=== PATIENT | female | born 1985 | race Caucasian/White ===

== ENCOUNTER 2016-11-06 07:13 | Emergency (ER) | payer BC, OTHER ==
[2016-11-06 07:23] VITALS: BP 110/63
--- NOTE | 2016-11-06 08:14 | UC ---
Parish Johnson Rebecca, scribed for Caryl Geronimo MD on 11/06/16 at 0746 . Skin Complaint HPI - HPI Summary HPI Summary: Pt is a 31 y/o F who presents to [facility] c/o LLE pain and erythema. Reports pain began 4 days ago and is characterized as tightness and tenderness, similar to a muscle strain. Pain is in the byrne and thigh and is currently mild, ranked 3/ 10. Erythema began 2 days ago as a "patchy line of redness" and has improved since onset. Sx aggravated by palpation and ambulation, alleviated by ASA (last took 325 mg this morning). Denies warmth to touch, acute calf tenderness, pruritis, palpitations, SOB, MICHELLE, dizziness, lightheadedness, abd and inguinal pain. Reports she is typically extremely active (running and yoga) but the past 2.5 weeks she has not been active and was "in the car all last week." PMHx DVT ( 2006 s/p ankle fx). At that time, was taking oral contraceptives. Notes chronic L calf tightness secondary to DVT but current sx are not similar to chronic sx. Had acupuncture treatment several days ago. Small ecchymosis noted on the inner thigh at that time. Photograph taken yesterday shows erythema over the course of the greater saphenous. Flying to [place] this week and is concerned about risk. - History of Current Complaint Chief Complaint: UCSkin Time Seen by Provider: 11/06/16 07:40 Stated Complaint: LEG PAIN Hx Obtained From: Patient Hx Last Menstrual Period: iud Onset/Duration: Lasting Days - Pain - 4 days Erythema - 2 days, Still Present Current Severity: Mild Pain Intensity: 3 Pain Scale Used: 0-10 Numeric Location: Other - LLE Character: Pain - mild, Redness Aggravating: Other - Ambulation and palpation Alleviating: OTC Meds - ASA Associated Signs & Symptoms: Positive: Negative - Allergy/Home Medications Allergies/Adverse Reactions: Allergies Allergy/AdvReac Type Severity Reaction Status Date / Time Cefprozil [From Cefzil] Allergy Hives Verified 11/06/16 07:20 Home Medications: Home Medications NK [No Home Medications Reported] 11/06/16 [History Confirmed 11/06/16] Review of Systems Constitutional: Negative Skin: Other - "Patchy line of redness" on the LLE Eyes: Negative ENT: Negative Respiratory: Negative Cardiovascular: Negative Gastrointestinal: Negative Genitourinary: Negative Motor: Negative Neurovascular: Negative Musculoskeletal: Other: - Mild pain (tightness/tenderness) in the L byrne and L thigh Neurological: Negative Psychological: Negative All Other Systems Reviewed And Are Negative: Yes - Comments Additional Review of Systems Comments: NEGATIVE: Warmth to touch, acute calf tenderness, pruritis, palpitations, SOB, MICHELLE, dizziness, lightheadedness, abd and inguinal pain PMH/Surg Hx/FS Hx/Imm Hx Previously Healthy: No Cardiovascular History: Deep Vein Thrombosis - 2006 s/p ankle fx - Surgical History Surgical History: None - Family History Known Family History: Positive: Hypertension - father - Social History Occupation: Employed Full-time - Massage therapist Alcohol Use: Occasionally Substance Use Type: None Smoking Status (MU): Never Smoked Tobacco Physical Exam Triage Information Reviewed: Yes Appearance: Well-Appearing, Thin Vital Signs: Initial Vital Signs Temp 98 F 11/06/16 07:20 Pulse 65 11/06/16 07:20 Resp 16 11/06/16 07:20 BP 110/63 11/06/16 07:20 Pulse Ox 100 11/06/16 07:20 Vital Signs Reviewed: Yes Eye Exam: Normal ENT: Positive: Pharynx normal Respiratory: Positive: Lungs clear, Normal breath sounds Cardiovascular: Positive: RRR, No Murmur Abdomen Description: Positive: Nontender, No Organomegaly, Other: - no tenderness or adenopathy in the inguinal area. Musculoskeletal Exam: Normal Musculoskeletal: Positive: No Edema, Other: - Leg circumference taken at the top of the patella: 35.5 cm bilaterally. 10cm below the tibial tuberosity: 34 cm bilaterally. Psychological Exam: Normal Skin: Positive: Other - no warmth or erythema. Small ecchymosis about 2 cm medial left thigh, and one small 1 cm ecchymosis in the medial left calf. Erythema has resolved. Course/Dx - Course Course Of Treatment: continue observation of suspected superficial thrombophlebitis. Discussed transfer to ER for doppler evaluation; reluctant because of cost. Advised to present to the ER or to her audience development manager for follow up if pain persists or worsens, or if there is increased swelling. Aspirin 325mg once daily. - Diagnoses Provider Diagnoses: superficial thrombophlebitis left leg. Discharge - Discharge Plan Condition: Stable Disposition: HOME Patient Education Materials: Superficial Thrombophlebitis (ED) Additional Instructions: As discussed, thie findings suggest a superficial thrombophlebitis. Should you have increasing pain, please go to the emergency room for assessment and a Doppler evaluation of the leg. Continue use of aspirin 325mg once daily for pain and for anti-platelet effect. I suggest follow up with your primary care on Tuesday, when a n evaluation could be arranged. The documentation as recorded by the Parish kinsey Rebecca accurately reflects the service I personally performed and the decisions made by me, Caryl Geronimo MD.
== END 2016-11-06 08:15 | disposition home or self-care (01) ==
LOC: UCEAST 07:13
DX: I80.02 Phlebitis and thrombophlebitis of superficial vessels of left lower extremity (principal); Z86.718 Personal history of other venous thrombosis and embolism
CPT/HCPCS: 99201; G0463

== ENCOUNTER 2016-11-07 13:04 | Emergency (ER) | payer BC ==
[2016-11-07 14:00] LABS: Urine Bilirubin Negative (Negative); Urine Glucose Negative (Negative); Urine Nitrite Negative (Negative)
[2016-11-07 14:01] LABS: Hematocrit 41 % (35-47); Hemoglobin 14.1 g/dl (12.0-16.0); Mean Corpuscular HGB Conc 34 g/dl (31-36); Mean Corpuscular Hemoglobin 31 pg (27-31); Mean Corpuscular Volume 90 fL (80-97); Mean Platelet Volume 9 um3 (7.4-10.4); Red Blood Count 4.55 10^6/ul (4.0-5.4); Red Cell Distribution Width 13 % (10.5-15); White Blood Count 6.9 10^3/ul (3.5-10.8)
[2016-11-07 14:10] LABS: ALT 15 U/L (7-52); AST 17 U/L (13-39); Albumin 4.9 g/dL (3.2-5.2); Alkaline Phosphatase 39 U/L (34-104); Anion Gap 7 mmol/L (2-11); BUN/Creatinine Ratio 11.9 (8-20); Blood Urea Nitrogen 10 mg/dL (6-24); C Reactive Protein < 1.00 mg/L (< 5.00); CO2 Carbon Dioxide 25 mmol/L (22-32); Calcium 9.4 mg/dL (8.6-10.3); Chloride 106 mmol/L (101-111); EGFR African American 103.1 (>60); EGFR Non-African American 80.2 (>60); Globulin 2.8 g/dL (2-4); Glucose 86 mg/dL (70-100); Lipase 29 U/L (11.0-82.0); Potassium 3.5 mmol/L (3.5-5.0); Sodium 138 mmol/L (133-145); Total Protein 7.7 g/dL (6.4-8.9)
--- NOTE | 2016-11-07 15:08 | RAD ---
Indication: RIGHT pelvic pain. Comparison: No relevant prior exams available on the [facility] for comparison. Technique: Transvaginal pelvic ultrasound. Report: 7.2 x 3.4 x 5.9 cm anteverted uterus with 3 mm endometrium. IUD in place in the endometrial cavity. No uterine lesions evident. 3.7 x 2.4 x 2.3 cm LEFT ovary with documented vascular flow is remarkable for multiple small follicles. 10.0 x 7.5 x 7.8 cm complex RIGHT adnexal region mass with an echogenic shadowing elements consistent with calcification as well as complex fluid. Only equivocal marginal vascularity. The RIGHT ovary is not identified separate from this structure. Trace anechoic simple appearing free fluid in the RIGHT adnexal region. IMPRESSION: 1. IUD appears in appropriate position. 2. Unremarkable LEFT ovary. 3. While no definitive RIGHT ovarian tissue is visualized the RIGHT adnexal region mass lesion is highly suspicious for a dermoid cyst arising from the RIGHT ovary with the ovarian tissue likely completely marginated due to the size of the lesion. Correlate with clinical assessment as torsion or partial torsion of this large mass is not excluded on the basis of this exam. 4. Trace free pelvic fluid. Results discussed with Dr. Chiu 11/07/2016 3:04 PM EDT
[2016-11-07 16:05] VITALS: BP 107/67
--- NOTE | 2016-11-07 16:27 | RAD ---
INDICATION: LEFT lower extremity pain. History of DVT. COMPARISON: January 31, 2007 TECHNIQUE: Hess scale, color Doppler, and spectral analysis of the deep veins of the LEFT lower extremity. Vessel compression, phasicity, and augmentation assessed. REPORT: The LEFT common femoral, great saphenous, profunda femoral, femoral, popliteal, peroneal, and posterior tibial veins are patent. Patency of the RIGHT common femoral vein documented. IMPRESSION: No evidence for LEFT lower extremity deep venous thrombosis.
[2016-11-07] MEDS ORDERED: traMADol TAB* 50 MG PO ONE (16:44)
--- NOTE | 2016-11-09 07:55 | ED ---
Cecile Johnson SooYoung, scribed for Otf Chiu MD on 11/07/16 at 1325 . Abdominal Pain/Female - HPI Summary HPI Summary: A 31 y/o F presents to ED with c/o R-sided abd pain onset few days ago. She states it's not worsening. Pert PMHx: ovarian cysts, and she states the pain feels similar. Pain described as cramping and is non-radiating. Denies dysuria, hematuria, fever, chills, nausea, diaphoresis. Taking Aspiring to mild relief. Pt has an IUD. Non-smoker. Occasional ETOH. PMHx: UTI, neg kidney stones. Pt is scheduled for air travel tomorrow for her honeymoon. PCP is Family Medicine. 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 - History of Current Complaint Chief Complaint: EDAbdPain Stated Complaint: RT ABD PAIN Time Seen by Provider: 11/07/16 13:12 Hx Obtained From: Patient Hx Last Menstrual Period: iud Onset/Duration: Gradual Onset, Lasting Days, Still Present Timing: Constant Severity Initially: Moderate Severity Currently: Moderate Pain Intensity: 4 Pain Scale Used: 0-10 Numeric Location: Diffuse - R-side Radiates: No Character: Cramping Aggravating Factor(s): Nothing Alleviating Factor(s): OTC Analgesics - mildly Associated Signs and Symptoms: Positive: Negative. Negative: Diaphoresis, Fever , Urinary Symptoms, Nausea, Other: - neg: chills Allergies/Adverse Reactions: Allergies Allergy/AdvReac Type Severity Reaction Status Date / Time Cefprozil [From Cefzil] Allergy Hives Verified 11/06/16 07:20 PMH/Surg Hx/FS Hx/Imm Hx Previously Healthy: No Cardiovascular History: Reports: Hx Deep Vein Thrombosis Respiratory History: Denies: Hx Chronic Obstructive Pulmonary Disease (COPD) History: Reports: Other Problems/Disorders - ovarian cysts; UTI Denies: Hx Kidney Stones Opthamlomology History: Denies: Hx Legally Blind Infectious Disease History: No Infectious Disease History: Denies: Hx Clostridium Difficile, Hx Hepatitis, Hx Human Immunodeficiency Virus (HIV), Hx of Known/Suspected MRSA, Hx Shingles, Hx Tuberculosis, Hx Known/ Suspected VRE, Hx Known/Suspected VRSA, History Other Infectious Disease, Traveled Outside the [place] in Last 30 Days - Family History Known Family History: Positive: Hypertension - father, Other - mom: appy - Social History Occupation: Employed Full-time Lives: With Family - Alcohol Use: Occasionally Hx Substance Use: No Substance Use Type: Reports: None Hx Tobacco Use: No Smoking Status (MU): Never Smoked Tobacco Review of Systems Negative: Fever, Chills Negative: Erythema Negative: Sore Throat Negative: Chest Pain Negative: Shortness Of Breath, Cough Positive: Abdominal Pain. Negative: Vomiting, Nausea Negative: dysuria, hematuria Negative: Myalgia, Edema Negative: Rash Neurological: Other - neg: dizziness All Other Systems Reviewed And Are Negative: Yes Physical Exam - Summary Physical Exam Summary: Constitutional: Well-developed, Well-nourished, Alert. (-) Distressed Skin: Warm, Dry HENT: Normocephalic; Atraumatic Eyes: Conjunctiva normal Neck: Musculoskeletal ROM normal neck. (-) JVD, (-) Stridor, (-) Tracheal deviation Cardio: Rhythm regular, rate normal, Heart sounds normal; Intact distal pulses; The pedal pulses are 2+ and symmetric. Radial pulses are 2+ and symmetric. (-) Murmur Pulmonary/Chest wall: Effort normal. (-) Respiratory distress, (-) Wheezes, (-) Rales Abd: Soft, RLQ tenderness, (-) Distension, (-) Guarding, (-) Rebound, (-) Adnexal tenderness. Musculoskeletal: (-) Edema Lymph: (-) Cervical adenopathy Neuro: Alert, Oriented x3 Psych: Mood and affect Normal Triage Information Reviewed: Yes Vital Signs On Initial Exam: Initial Vitals Temp Pulse Resp BP Pulse Ox 98.2 F 71 16 126/75 100 11/07/16 13:07 11/07/16 13:07 11/07/16 13:07 11/07/16 13:07 11/07/16 13:07 Vital Signs Reviewed: Yes Diagnostics - Vital Signs Vital Signs Temp Pulse Resp BP Pulse Ox 11/07/16 13:07 98.2 F 71 16 126/75 100 - Laboratory Result Diagrams: 11/07/16 13:32 11/07/16 13:32 Lab Statement: Any lab studies that have been ordered have been reviewed, and results considered in the medical decision making process. - Ultrasound No standard instances Ultrasound Interpretation: Positive (See Comments) - TRANSVAG U/S IMPRESSION: 1. IUD appears in appropriate position. 2. Unremarkable LEFT ovary. 3. While no definitive RIGHT ovarian tissue is visualized the RIGHT adnexal region mass lesion is highly suspicious for a dermoid cyst arising from the RIGHT ovary with the ovarian tissue likely completely marginated due to the size of the lesion. Correlate with clinical assessment as torsion or partial torsion of this large mass is not excluded on the basis of this exam. 4. Trace free pelvic fluid. Results discussed with Dr. Chiu 11/07/2016 3:04 PM EDT Ultrasound Interpretation Completed By: Radiologist - Additional Comments Diagnostic Additional Comments: Venous U/S as read by radiologist: IMPRESSION: No LLE DVT. Re-Evaluation - Re-Evaluation 1 Re-Evaluation Time: 15:45 Change: Unchanged Comment: Discussing results and consult with pt and . Pt recently ate a [employer] bar while in ED, even though NPO was ordered. Brief PE finds mild abd tenderness and no peritoneal tendenress. Pt states having had tightness in L thigh for past few days, at rest without movement. PMHx of DVT. Per Dr. Bond , OB-DIGITAL CONTENT MARKETING MANAGER, pt should not go on her honeymoon, should have the ovary removed this week. Pt at high-risk for torsion. Pt is to f/u with office tomorrow AM. Pt voiced understanding. 2 Re-Evaluation Time: 16:46 Change: Unchanged Comment: Discussing U/S results with pt. Will dispo home per Dr. Bond's instructions. Abdominal Pain Fem Course/Dx - Course Course Of Treatment: A 31 y/o F presents to ED with c/o R-sided abd pain onset few days ago. She states it's not worsening. Pert PMHx: ovarian cysts, and she states the pain feels similar. Pain described as cramping and is non-radiating. Denies dysuria, hematuria, fever, chills, nausea, diaphoresis. Pt has an IUD. PMHx: UTI, neg kidney stones. Blood results are without significant abnormalities. UA is negative for UTI. Transvag U/S shows "1. IUD appears in appropriate position. 2. Unremarkable LEFT ovary. 3. While no definitive RIGHT ovarian tissue is visualized the RIGHT adnexal region mass lesion is highly suspicious for a dermoid cyst arising from the RIGHT ovary with the ovarian tissue likely completely marginated due to the size of the lesion. Correlate with clinical assessment as torsion or partial torsion of this large mass is not excluded on the basis of this exam. 4. Trace free pelvic fluid." Venous Doppler U/S shows no evidence of LLE DVT. Pt will be D/C to f/u OBGYN tomorrow. - Diagnoses Provider Diagnoses: Ovarian mass, right, myalgia of L leg - Provider Notifications Discussed Care Of Patient With: Ariadna Bond - LYNDA Time Discussed With Above Provider: 15:31 Instructed by Provider To: Have Pt Call For Appt. - Tomorrow AM. Since pt is not in acute abd distress, emergency surgery not justified. Ovary should be removed this week. Pt is at high risk for torsion. Discharge - Discharge Plan Condition: Stable Disposition: HOME Patient Education Materials: Ovarian Cyst (ED), Musculoskeletal Pain (ED) Referrals: Portia Stubbs MD [Primary Care Provider] - Ariadna Bond MD [Medical Doctor] - 1 Day (Call Dr. Bond's office, OB-DIGITAL CONTENT MARKETING MANAGER , tomorrow , 11/08/16. Surgery to remove the ovary should occur this week. ) Additional Instructions: Call Dr. Bond's office, OB-DIGITAL CONTENT MARKETING MANAGER, tomorr, 11/08/16. Surgery to remove the ovary should occur this week. Return to Emergency Room immediately if you experience acute, worsening abdominal pain. The documentation as recorded by the Cecile kinsey SooYoung accurately reflects the service I personally performed and the decisions made by me, Otf Chiu MD.
== END 2016-11-07 17:24 | disposition home or self-care (01) ==
LOC: ED 13:04
DX: N83.9 Noninflammatory disorder of ovary, fallopian tube and broad ligament, unspecified (principal); M79.1 Myalgia; Z32.02 Encounter for pregnancy test, result negative; Z97.5 Presence of (intrauterine) contraceptive device; Z86.718 Personal history of other venous thrombosis and embolism; Z88.1 Allergy status to other antibiotic agents; Z87.440 Personal history of urinary (tract) infections
CPT/HCPCS: 36415; 76830; 80053; 81003; 83605; 83690; 84702; 85025; 86140; 99282; A9270-GY

== ENCOUNTER 2017-01-14 08:03 | Observation (INO) | payer BC ==
[~2017-01-14 08:03] MED LIST: Buffered Lidocaine 0.9% SYRIN* 5 ML/SYR SYRINGE INTRADERM ONE
[2017-01-14] MEDS ORDERED: Clindamycin 900 MG IVPREMIX(* 900 MG/50 ML SDV IV ONE (08:39)
[2017-01-14] MEDS ORDERED: Buffered Lidocaine 0.9% SYRIN* 5 ML/SYR SYRINGE ONE (08:40)
[2017-01-14] MEDS ORDERED: Bupivacaine 0.5% SDV PF* 30 ML VIAL ONE (08:50)
[2017-01-14] MEDS ORDERED: Bupivacaine 0.25% SDV* 30 ML ONE (08:50)
[2017-01-14] MEDS ORDERED: fentaNYL* 50 MCG/ML 2 ML VIAL (100 MCG VIAL) ONE (09:03)
[2017-01-14] MEDS ORDERED: Midazolam* 1 MG/ML 2 ML VIAL (2 MG) ONE (09:04)
[2017-01-14] MEDS ORDERED: Morphine PF AMP (0.5MG/ML)* 5 MG/10 ML AMP ONE (09:40)
[2017-01-14] MEDS ORDERED: Scopolamine 1.5 mg* PATCH ONE (10:17)
[2017-01-14] MEDS ORDERED: Famotidine IV* 10 MG/ML 2 ML (20 mg) ONE (10:17)
[2017-01-14] MEDS ORDERED: Dexamethasone IV* 4 MG/ML 1 ML (4 MG) ONE (10:17)
[2017-01-14] MEDS ORDERED: Ondansetron INJ* 2 MG/ML VIAL ONE (10:17)
[2017-01-14] MEDS ORDERED: Ketorolac INJ* 30 MG/ML 1 ML VIAL ONE (10:17)
[2017-01-14] MEDS ORDERED: fentaNYL* 50 MCG/ML 2 ML VIAL (100 MCG VIAL) IV PRN (10:37)
[2017-01-14] MEDS ORDERED: Ondansetron INJ* 2 MG/ML VIAL IV PRN (10:38)
[2017-01-14] MEDS ORDERED: Nalbuphine* 20 MG/ML 1 ML VIAL IV PRN ×2 (10:38)
[2017-01-14] MEDS ORDERED: diPHENhydraMINE IV* 50 MG/ML 1 ml VIAL (BENADRYL) IV PRN (10:38)
[2017-01-14] MEDS ORDERED: Scopolomine PATCH Remove* 1 NOTE MISC PATCH OFF PRN (10:38)
[2017-01-14] MEDS ORDERED: Naloxone* 0.4 MG/ML 1 ML VIAL IV PRN (10:38)
[2017-01-14] MEDS ORDERED: HYDROcodone/ACETAMIN 5-325 MG* 1 TAB PO PRN ×2 (10:38)
[2017-01-14] MEDS ORDERED: PROCHLORPERAZINE INJ 5 MG/ML 2 ML VIAL IV PRN (10:38)
[2017-01-14] MEDS ORDERED: Acetaminophen TAB* 325 MG PO SCH (11:00)
[2017-01-14] MEDS ORDERED: Nalbuphine* 20 MG/ML 1 ML VIAL ONE (12:08)
[2017-01-14] MEDS ORDERED: PROCHLORPERAZINE INJ 5 MG/ML 2 ML VIAL ONE (12:39)
[2017-01-14] MEDS: Ketorolac INJ* 30 MG/ML 1 ML VIAL IV SCH ×3 (13:01→23:26)
[2017-01-14] MEDS: Acetaminophen TAB* 325 MG PO SCH ×3 (14:19→22:12)
[2017-01-14] MEDS ORDERED: Enoxaparin(*) 40 MG/0.4 ML SYR SUBCUT SCH (20:00)
[2017-01-14 22:02] LABS: BUN/Creatinine Ratio 9.2 (8-20); Calcium 8.7 mg/dL (8.6-10.3); Magnesium 1.6 mg/dL (1.9-2.7); Potassium 4.3 mmol/L (3.5-5.0)
--- NOTE | 2017-01-14 23:33 | CONS ---
CC: Portia Stubbs MD; Dr. Bond * CONSULTATION REPORT: DATE OF CONSULT: 01/14/17 ATTENDING PHYSICIAN: Tram Barrera DO (report dictated by Joaquín Paris NP). REQUESTING PHYSICIAN IN CONSULT: Dr. Bond. PRIMARY CARE PROVIDER: Portia Stubbs MD REASON FOR MEDICAL CONSULTATION: Response to CAT call for bradycardia, heart rate in 29 by palpation of the radial pulse. HISTORY OF PRESENT ILLNESS: Ms. Mays is a 31-year-old female who presented to the Dr. Bond's care for an evaluation of a large right dermoid of 10 x 7.5 x 7.8 cm and desired for ovarian cystectomy and preservation of the right ovary. The patient had been complaining of discomfort and pressure sensation from the enlarged right dermoid. She sought care with Dr. Bond. She went to the OR today for this ovarian cystectomy. She underwent spinal Duramorph anesthetic. Whilst in the OR, it was noted that heart rates were running low into the 50s. The patient was found to be bradycardic at 29 around 2100 tonight. CAT call was called. She was evaluated. She is asymptomatic. She is not having any chest pain. She does not feel lightheaded. She does state that she runs daily. When I auscultated her heart rate, she did sound she was right about 50. Blood pressure was stable in the 110/70 range. She had no symptoms. She states that she does a lot of running and yoga. The patient does have a history of DVT after an ankle fracture in 2006 and she was also taking oral contraceptives. The patient again denies feeling lightheaded and states that she has been up walking around. PAST MEDICAL HISTORY: Significant for: 1. DVT in the past. 2. Ankle fracture. PAST SURGICAL HISTORY: She has had wisdom teeth extractions. HOME MEDICATIONS: Include: 1. Mushroom tincture 1 tablet daily. 2. Lactobacillus 1 tablet daily. 3. Homeopathic products 1 p.o. daily. 4. Fish oil 1 capsule daily. ALLERGIES TO MEDICATIONS: Include CEFPROZIL. FAMILY HISTORY: She states both her mom and dad to her knowledge are healthy. They have no significant medical problems. SOCIAL HISTORY: She does not smoke. She does not drink. She is . She does not have any children. She is again very active. She was running on a daily basis up to a few weeks ago. She does not know her resting heart rate though. Surrogate decision maker is her . REVIEW OF SYSTEMS: There is no documented fever. There is no significant weight change. No double vision. No ear discharge. Denied having any rhinorrhea. There is no sore throat. No thyroid enlargement. She denied having any chest pain or shortness of breath. No abdominal pain. No nausea. No vomiting. No dysuria. She denied any frequency. No loss of consciousness, no pruritus and no skin ulcerations. Review of 14 systems completed, all others negative. PHYSICAL EXAM: Vital Signs: Reveals blood pressure 102/37; pulse, again there was documentation of 38 and now it is 54; respirations 16; O2 sat 100%. General : At this time, Ms. Mays is a 31-year-old female patient. She appears to be well nourished, well developed. She does not appear to be in any acute distress. She is awake and she is alert. HEENT: Head: Atraumatic, normocephalic. Eyes: EOMs are intact. Sclerae anicteric. Not pale. Neck: Supple. Throat: Oral mucosa appears to be moist. No oropharyngeal erythema. Heart: Sounds S1, S2. Regular rate and rhythm. No murmurs, rubs, or gallops. Lungs: Clear to auscultation. No wheezes, rales, or rhonchi. Abdomen: Soft , flat, nontender. Bowel sounds present. Extremities: Pulses 2+ throughout. No peripheral edema. No calf tenderness. 5/5 strength. Neurologically, she is awake, alert, oriented x3. Tongue midline, automation machine operator were equal. No gross focal deficits. Skin: Grossly intact. DIAGNOSTIC STUDIES/LAB DATA: WBC from 01/03/17 was 5.4, RBC 4.58, hemoglobin 13.9, hematocrit 41, platelet count 291,000. Chemistries on 11/07/16, sodium 138 , potassium 3.5, chloride 106, bicarb 25, BUN 10, creatinine 0.84. Glucose 86. Lactate 1.4. Calcium 9.4. Total bili 0.3. AST 17, ALT 15, alk phos 39, CRP less than 1. Urine negative. She did have a EKG obtained today, no other previous for comparison, but it does show a sinus bradycardia. No AV blocks. No T-wave inversions. No ST elevations. No previous for comparison. Old medical records were reviewed. ASSESSMENT AND PLAN: Ms. Mays is a 31-year-old female patient coming into Dr. Bond's service today for an elective right ovarian cystectomy. The patient postoperatively was noted to be bradycardic. The patient was again noted to be pretty asymptomatic. A CAT call was called and we were asked to evaluate in consult. Recommendations at this point are: 1. Bradycardia. This appears to be symptomatic bradycardia. I am going to place her on telemetry. A question of maybe she was in bigeminy. I am going to get her electrolytes, BMP and also magnesium. We will place her on the telemetry on surgical stay. We will monitor. Should she become symptomatic, we will get a more emergent cardiology consult, but we should consider cardiology consult in the morning. I did discuss this with Dr. Christine. She was in agreement. It could just be med related again. The Duramorph may be causing bradycardia and her resting heart rate is probably in the 50s as she is very active and a runner, so I think we just need to monitor. She is completely asymptomatic. We will follow closely. 2. DVT prophylaxis. Again, high risk and she is already on Lovenox subcu by Dr. Bond's team, though I will continue with this. I do not see any signs of deep venous thromboses currently. We will monitor. 3. Ovarian cystectomy, status post postop day #0. I will defer the management to Dr. Bond and team. 4. Code status: Full code. 5. Fluids, electrolytes, and nutrition. I would recommend a regular diet. TIME SPENT: On the consult 40 minutes, greater than half the time spent face-to - face with the patient obtaining my history and physical; other half of time spent going over the plan of care with the patient and implementing the plan of care. I did discuss this plan of care with my attending, Dr. Barrera, she is in agreement. JOAQUÍN PARIS, TRICIA [id number]/[facility] #: [id number]
[2017-01-15] MEDS ORDERED: NS 0.9% 1000 ML* 1,000 ML IV SCH (00:45)
[2017-01-15] MEDS ORDERED: Magnesium Sulfate 2 GM IV* 2 GM/50 ML BAG IVPB ONE (01:00)
[2017-01-15] MEDS ORDERED: oxyCODONE/Acetamin 5/325 MG* TAB PO PRN ×2 (02:00)
[2017-01-15] MEDS: Acetaminophen TAB* 325 MG PO SCH ×2 (02:13→05:55)
--- NOTE | 2017-01-15 05:06 | OP ---
OPERATIVE REPORT: DATE OF OPERATION: 01/14/17 DATE OF : 89 SURGEON: Ariadna Bond MD. FORM SETTER: Adrian Elizondo MD. ANESTHESIOLOGIST: Dr. Dumont. ANESTHESIA: Spinal anesthesia with local. PRE-OP DIAGNOSIS: Right ovarian mass. POST-OP DIAGNOSIS: Right ovarian mass. OPERATIVE PROCEDURE: Right ovarian cystectomy and laparotomy. ESTIMATED BLOOD LOSS: Minimal. URINE OUTPUT: 300 cc of clear yellow urine. FLUIDS: 1500 cc of crystalloid. FINDINGS: Reveal a 10 cm right adnexal mass consistent with benign dermoid with hair and sebaceous material and bone appreciated. Left ovary palpated normally. Left tube and right fallopian tube within normal appearance. Normal- appearing uterus. Normal-appearing bowel. COMPLICATIONS: None apparent. DISPOSITION: Stable to recovery room. DESCRIPTION OF PROCEDURE: The patient was placed in dorsal lithotomy position. A Jacobsen was placed with sterile technique and the abdomen was then prepped and draped in a sterile standard fashion. Please note that the patient had SCDs running as soon as the spinal was completed. The patient was identified with universal protocol for correct procedure, position, and patient. The incision was infused with approximately 10 cc of 0.5% bupivacaine without epi. An incision was made, 6 cm in length 2 fingerbreadths above the pubic symphysis. This was carried down through to the fascia. Fascia was scored in the midline and the fascial incision was extended laterally and superiorly using Johnson scissors. The peritoneum was then entered sharply using Metzenbaum scissors and the peritoneal incision was extended superiorly and inferiorly while directly visualizing bowel and bladder using Metzenbaum scissors. A moist laparotomy sponge was placed intra-abdominally. The uterus was palpated and noted to have a normal appearance. The right ovarian mass was appreciated and using a malleable retractor the ovarian cyst was brought to the surface of the abdominal wall and wrapped in moist laparotomy sponge. An incision was made on the ovarian wall and the cyst was dissected out from the ovary in a standard technique. At the base of the ovarian cyst, there was some drainage of sebaceous material, which was suctioned out. The base of the ovarian cyst was clamped with a Irving. The ovarian cyst was then removed with Metzenbaum scissors and handed off as a specimen. The base of the cyst wall was clamped at the Irving was then sutured ligated using 2-0 Vicryl and Irving traction. The inside of the ovary was visualized where the cyst wall had been dissected free and this was circumferentially reduced using 3-0 Vicryl. The ovarian wall was reapproximated and condensed in 3 layers of 3-0 Polysorb x3 circumferential sutures. The defect was completely reapproximated and hemostasis was assured. The right fallopian tube was not involved in the dissection site and it was noted to have a normal appearance. The left tube and ovary were then visualized and palpated and noted to have a normal appearance without evidence of ovarian cyst. The bowel was evaluated and noted to have a normal appearance and the uterus was noted to have a normal appearance. The moist laparotomy sponge was then removed, copious lavage was performed. Again, hemostasis was assured at the dissection site of the right ovary. The peritoneum was then reapproximated using 3-0 Vicryl in a running fashion. Subfascial area was visualized. Hemostasis assured and the fascia itself was reapproximated using 0 Vicryl x2 in a running fashion. The subcu area was lavaged. Hemostasis assured with Bovie coagulation and the skin was then reapproximated using a 4-0 Monocryl in a subcuticular fashion. Mastisol and Steris were applied. All sponge, needle, instrument, and blade counts were correct throughout the case. The patient tolerated the procedure well and went to recovery room in stable condition. [id number] #: [id number] MTDD
[2017-01-15] MEDS: Ketorolac INJ* 30 MG/ML 1 ML VIAL IV SCH (05:22)
[2017-01-15 06:41] LABS: Hematocrit 30 % (35-47); Hemoglobin 10.5 g/dl (12.0-16.0); Mean Corpuscular HGB Conc 36 g/dl (31-36); Mean Corpuscular Hemoglobin 31 pg (27-31); Mean Corpuscular Volume 86 fL (80-97); Mean Platelet Volume 9 um3 (7.4-10.4); Red Blood Count 3.42 10^6/ul (4.0-5.4); Red Cell Distribution Width 13 % (10.5-15)
[2017-01-15] MEDS ORDERED: Ibuprofen TAB* 600 MG PO SCH (11:00)
[2017-01-15 11:47] VITALS: BP 105/47
[2017-01-17] MEDS ORDERED: Scopolomine PATCH Remove* 1 NOTE MISC PATCH OFF ONE (10:37)
== END 2017-01-15 11:20 | disposition home or self-care (01) ==
LOC: OR 08:03 → SSU 13:27
PROVIDERS: ADMIT Obstetrics & Gynecology; ATTEND Obstetrics & Gynecology
DX: D27.0 Benign neoplasm of right ovary (principal); I97.89 Other postprocedural complications and disorders of the circulatory system, not elsewhere classified; Y83.8 Other surgical procedures as the cause of abnormal reaction of the patient, or of later complication, without mention of misadventure at the time of the procedure; Y92.239 Unspecified place in hospital as the place of occurrence of the external cause; R00.1 Bradycardia, unspecified
CPT/HCPCS: 36415; 80048; 81025; 83735; 85025; 88305; 93005; A9270-GY; G0378; J0780; J1100; J1580; J1650; J1885; J2250; J2300; J2405; J3010; J3475